=== PATIENT | male | born 1950 | race Caucasian/White ===

== ENCOUNTER 2022-04-18 20:17 | Emergency (ER) | payer MEDICARE, BC, SELFPAY ==
[2022-04-18 20:29] VITALS: BP 142/77; PULSE 91; RESP 16; TEMP 37; O2SAT 96; BMI 26.5
--- NOTE | 2022-04-18 20:56 | CRLHL7_ITS ---
For Patients: As a result of the Cures Act, medical imaging exams and procedure reports are released immediately into your electronic medical record. You may view this report before your referring provider. If you have questions, please contact your health care provider. Indication: Fell Technique: Three views left hand Comparison: No comparison Findings: Dorsal dislocation of the left 3rd middle phalanx. Volar plate avulsion fracture of the left 4th middle phalanx. Soft tissue swelling. Dictated by Michaela Armando MD @ 04/18/2022 9:45:14 PM (Electronically Signed)
[2022-04-18] MEDS: TETANUS/DIPHTH/PERTUSSIS 0.5 ML SYRINGE IM (21:08)
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
--- NOTE | 2022-04-18 21:35 | CRLHL7_ITS ---
For Patients: As a result of the Cures Act, medical imaging exams and procedure reports are released immediately into your electronic medical record. You may view this report before your referring provider. If you have questions, please contact your health care provider. INDICATION: Finger dislocation status post reduction, hand injury TECHNIQUE: Hand radiograph 2 views left COMPARISON: 04/18/2022 FINDINGS: Bone: The avulsion fracture along the palmar base of the 4th middle phalanx is noted without interval change. The 3rd PIP joint has been reduced to anatomic alignment. Joint: Mild osteoarthritis of the DIP joints are present and digits 3 through 5. Soft tissue: Unremarkable. No radiopaque foreign bodies are seen. IMPRESSIONS: 1. The 3rd PIP joint has been reduced to anatomic alignment. 2. The avulsion fracture along the palmar base of the 4th middle phalanx is noted without interval change. Dictated by Anastacio Morgan MD @ 04/18/2022 10:09:05 PM Dictated by: Anastacio Morgan MD @ 04/18/2022 22:09:10 (Electronically Signed)
== END 2022-04-18 22:10 | disposition home or self-care (01) ==
PROVIDERS: Emergency Provider Internal Medicine
DX: S63.283A Dislocation of proximal interphalangeal joint of left middle finger, initial encounter (principal); S62.605A Fracture of unspecified phalanx of left ring finger, initial encounter for closed fracture; M25.512 Pain in left shoulder; V19.9XXA Pedal cyclist (driver) (passenger) injured in unspecified traffic accident, initial encounter
CPT/HCPCS: 26770; 73120; 73130; 90471; 90715; 99283